=== PATIENT | male | born 1970 | race Asian ===

== ENCOUNTER 2024-01-02 07:16 | Day surgery (SDC) | payer BC ==
[2024-01-02] MEDS ORDERED: SIMETHICONE 40 MG/0.6 ML, 30ML BOTTLE ONE (09:15)
[2024-01-02] MEDS ORDERED: PROPOFOL 200 MG/20 ML BOTTLE ONE (09:15)
[2024-01-02 11:10] VITALS: TEMP 97.5
== END 2024-01-02 11:35 | disposition home or self-care (01) ==
LOC: DS 07:16
PROVIDERS: ATTEND Surgery
DX: Z12.11 Encounter for screening for malignant neoplasm of colon (principal); K63.89 Other specified diseases of intestine; K62.1 Rectal polyp; I10 Essential (primary) hypertension; E78.00 Pure hypercholesterolemia, unspecified; Z79.899 Other long term (current) drug therapy; Z98.890 Other specified postprocedural states; Z79.82 Long term (current) use of aspirin
CPT/HCPCS: A4663; J3490; J7120